=== PATIENT | male | born 1960 | race Caucasian/White ===

== ENCOUNTER 2025-04-06 09:07 | Inpatient (IN) | payer OTHER ==
[~2025-04-06] VITALS: Ht 185.4 cm; Wt 104.3 kg
[2025-04-06] MEDS ORDERED: TRIAMCINOLONE ACETONIDE SUSP 40 MG/ML 1 ML ONE (10:28)
[2025-04-06] MEDS ORDERED: HEMOSTATIC MATRIX 8 ML 1 EACH PAD MC ONE (10:29)
[2025-04-06] MEDS ORDERED: LIDOCAINE 0.5%-EPI 1:200,000 50 ML VIAL ONE (10:29)
[2025-04-06] MEDS ORDERED: MIDAZOLAM HCL 2 MG/2ML VIAL ONE (10:34)
[2025-04-06] MEDS ORDERED: LIDOCAINE 2% JEL UROJET 10 ML MM ONE (10:34)
[2025-04-06] MEDS ORDERED: Magnesium 1 GM/2 ML VIAL ONE (10:34)
[2025-04-06] MEDS ORDERED: FENTANYL PF 100MCG/2ML AMPUL ONE (10:34)
[2025-04-06] MEDS ORDERED: ROCURONIUM BROMIDE 50 MG/5 ML ONE ×2 (10:35→12:43)
[2025-04-06] MEDS ORDERED: ALBUMIN 5% 500 ML IV ONE (10:35)
[2025-04-06] MEDS ORDERED: FAMOTIDINE/PF INJ 20 MG/2 ML VIAL IV ONE (10:35)
[2025-04-06] MEDS ORDERED: SEVOFLURANE 250 ML BOTTLE IH ONE (10:43)
[2025-04-06] MEDS ORDERED: CEFAZOLIN 1 GM ONE (12:38)
[2025-04-06] MEDS ORDERED: SUGAMMADEX SODIUM 200 MG/2 ML VIAL IV ONE (13:05)
[2025-04-06] MEDS ORDERED: ACETAMINOPHEN 325 MG TABLET PO PRN (14:00)
[2025-04-06] MEDS ORDERED: MORPHINE SULFATE INJ 2 MG/ML DISP.SYRIN IV PRN (14:00)
[2025-04-06] MEDS ORDERED: hydrALAZINE HCL IV 20 MG VIAL IV PRN (14:00)
[2025-04-06] MEDS ORDERED: ONDANSETRON HCL/PF 4 MG/2 ML VIAL IVP PRN (14:00)
[2025-04-06] MEDS ORDERED: LISI10TA29 PO (15:38)
[2025-04-06] MEDS ORDERED: METF-440 PO (15:38)
[2025-04-06] MEDS ORDERED: HYDR25TA4 PO (15:38)
[2025-04-06] MEDS ORDERED: ATOR20TA PO (15:38)
[2025-04-06 16:00] VITALS: BP 124/62; TEMP 98.1; O2SAT 95
[2025-04-06 20:00] VITALS: BP 117/71; TEMP 98.4; O2SAT 95
[2025-04-07 07:00] VITALS: BP 114/77; TEMP 98.2; O2SAT 100
[2025-04-07 07:20] LABS: ASPARTATE AMINOTRANSFERASE 12.0 U/L (15-37); CALCIUM, SERUM 8.8 mg/dL (8.5-10.1); CREATININE 2.1 mg/dL (0.6-1.3); PHOSPHORUS 3.4 mg/dL (2.5-4.9); SODIUM SERUM 140.0 mmol/L (136-145); TOTAL PROTEIN, SERUM 6.8 g/dL (6.4-8.2); UREA NITROGEN, BLOOD 38.0 mg/dL (7-18)
[2025-04-07] MEDS: ANCEF 1 GM/50 ML D5W IV SCH (07:42)
[2025-04-07] MEDS: IV NS W/20MEQ KCL 1L IV SCH (07:42)
[2025-04-07] MEDS ORDERED: ZOLPIDEM TARTRATE 5 MG TABLET PO PRN (08:00)
[2025-04-07 08:02] LABS: PLATELET COUNT (AUTO) 238 K/uL (150-450); RED BLOOD CELL COUNT(AUTO) 4.45 MIL/uL (4.5-6.0); RED CELL DISTRIBUTION WIDTH 15.2 % (11.5-15.0); WHITE BLOOD COUNT (AUTO) 12.2 K/uL (4.3-11.0)
[2025-04-07] MEDS: HYDROMORPHONE 1 MG/1 ML DISP.SYRIN IV PRN (08:29)
[2025-04-07] MEDS: HYDROCHLOROTHIAZIDE 25 MG TABLET PO SCH (09:19)
[2025-04-07] MEDS: LISINOPRIL (10MG) 10 MG TABLET PO SCH (09:19)
[2025-04-07] MEDS: METFORMIN 500 MG TABLET PO SCH (09:19)
[2025-04-07] MEDS: ATORVASTATIN 10 MG TABLET PO SCH (09:19)
[2025-04-07] MEDS ORDERED: DEXTROSE 50%-WATER 50 ML DISP.SYRIN IV PRN (13:00)
[2025-04-07] MEDS: MAGNESIUM OXIDE 400 MG TABLET PO ONE (13:24)
[2025-04-07 16:00] VITALS: BP 118/83; TEMP 97.9; O2SAT 97
[2025-04-07] MEDS: BLOOD SUGAR DIAGNOSTIC 1 EACH STRIP IN SCH (16:56)
[2025-04-07] MEDS: INSULIN REGULAR, HUMAN 100 UNIT/ML 3 ML VIAL SQ PRN (17:02)
[2025-04-07 17:26] LABS: CREATININE, URINE 124.9 MG/DL (30.0-125.0); URINE SODIUM, RANDOM 67.0 mmol/l (40-220); URINE TOTAL PROTEIN 23.7 mg/dL (0-11.9)
[2025-04-07 17:38] LABS: APPEARANCE,URINE CLEAR (CLEAR); BLOOD, URINE NEGATIVE Ery/uL (NEGATIVE); LEUKOCYTE ESTERASE ,URINE NEGATIVE (NEGATIVE); NITRITE, URINE NEGATIVE (NEGATIVE); UGLUCOSE NEGATIVE (NEGATIVE)
[2025-04-07 19:12] LABS: EOSINOPHIL,URINE None Seen
[2025-04-07 20:00] VITALS: BP_SYST 114; BP_SYST 116; BP_DIAS 53; BP_DIAS 73; TEMP 97.5; TEMP 98.2; O2SAT 95; O2SAT 97
[2025-04-07] MEDS ORDERED: MAGNESIUM HYDROXIDE 30 ML UDC PO PRN (22:00)
[2025-04-07] MEDS: POLYETHYLENE GLYCOL 3350 17 GM POWD.PACK PO SCH (22:00)
[2025-04-07] MEDS: LACTULOSE 10 G/15 ML UDC (PYXIS) PR ONE (22:17)
[2025-04-08] VITALS: BP 103/61; TEMP 98.4; O2SAT 95
[2025-04-08 07:30] VITALS: BP 131/77; TEMP 98.2; O2SAT 99
[2025-04-08 11:19] LABS: PLATELET COUNT (AUTO) 227 K/uL (150-450); RED BLOOD CELL COUNT(AUTO) 4.45 MIL/uL (4.5-6.0); RED CELL DISTRIBUTION WIDTH 15.8 % (11.5-15.0); WHITE BLOOD COUNT (AUTO) 9.6 K/uL (4.3-11.0)
[2025-04-08 11:44] LABS: ASPARTATE AMINOTRANSFERASE 12.0 U/L (15-37); CALCIUM, SERUM 8.9 mg/dL (8.5-10.1); CREATININE 2.6 mg/dL (0.6-1.3); PHOSPHORUS 4.1 mg/dL (2.5-4.9); SODIUM SERUM 139.0 mmol/L (136-145); TOTAL PROTEIN, SERUM 6.9 g/dL (6.4-8.2); UREA NITROGEN, BLOOD 50.0 mg/dL (7-18)
[2025-04-08 12:08] LABS: CREATINE KINASE, TOTAL 121.0 U/L (39-308)
[2025-04-08 16:00] VITALS: BP 125/74; TEMP 98.1; O2SAT 98
[2025-04-08 17:09] LABS: CALCIUM, SERUM 9.6 mg/dL (8.5-10.1); CREATININE 2.6 mg/dL (0.6-1.3); SODIUM SERUM 140.0 mmol/L (136-145); UREA NITROGEN, BLOOD 53.0 mg/dL (7-18)
[2025-04-08 20:00] VITALS: BP 129/73; TEMP 98.6; O2SAT 96
[2025-04-09 05:08] LABS: PTH, INTACT 28 pg/mL (15-65)
[2025-04-09 07:11] LABS: ASPARTATE AMINOTRANSFERASE 12.0 U/L (15-37); CALCIUM, SERUM 8.8 mg/dL (8.5-10.1); CREATININE 2.5 mg/dL (0.6-1.3); SODIUM SERUM 141.0 mmol/L (136-145); TOTAL PROTEIN, SERUM 6.5 g/dL (6.4-8.2); UREA NITROGEN, BLOOD 53.0 mg/dL (7-18)
[2025-04-09 08:00] VITALS: BP 127/76; TEMP 98.1; O2SAT 97
[2025-04-09 08:04] LABS: PLATELET COUNT (AUTO) 223 K/uL (150-450); RED BLOOD CELL COUNT(AUTO) 4.37 MIL/uL (4.5-6.0); RED CELL DISTRIBUTION WIDTH 15.4 % (11.5-15.0); WHITE BLOOD COUNT (AUTO) 8.0 K/uL (4.3-11.0)
[2025-04-09] MEDS: METFORMIN 500 MG TABLET PO SCH (08:41)
[2025-04-09 16:00] VITALS: BP 128/74; TEMP 98.2; O2SAT 99
[2025-04-10 08:07] LABS: COMPLEMENT C3, SERUM 140 mg/dL (82-167); COMPLEMENT C4, SERUM 29 mg/dL (12-38)
[2025-04-10 10:07] LABS: HEPATITIS B SURFACE AB (QUAL) Reactive (.)
[2025-04-10 12:07] LABS: *ANA ANTI-CENTROMERE B AB <0.2 AI (0.0-0.9); *ANA ANTI-DNA(DS) AB, QN <1 IU/mL (0-9); *ANA ANTI-JO-1 <0.2 AI (0.0-0.9); *ANA ANTICHROMATIN ANTIBODY <0.2 AI (0.0-0.9); *ANA RNP ANTIBODIES 0.5 AI (0.0-0.9); *ANA SJOGREN'S ANTI-SS-A <0.2 AI (0.0-0.9); *ANA SJOGREN'S ANTI-SS-B <0.2 AI (0.0-0.9); *ANAANTI-SCLERODERMA-70 AB <0.2 AI (0.0-0.9); *ANASMITH AB <0.2 AI (0.0-0.9)
[2025-04-12 09:07] LABS: *SPE A/G RATIO 1.2 (0.7-1.7); *SPE ALBUMIN 3.4 g/dL (2.9-4.4); *SPE ALPHA-1-GLOBULIN 0.3 g/dL (0.0-0.4); *SPE ALPHA-2-GLOBULIN 0.7 g/dL (0.4-1.0); *SPE BETA GLOBULIN 0.9 g/dL (0.7-1.3); *SPE GLOBULIN, TOTAL 2.8 g/dL (2.2-3.9); *SPE M-SPIKE Not Observed g/dL (Not Observed); *SPE PROTEIN TOTAL 6.2 g/dL (6.0-8.5); *SPEGAMMA GLOBULIN 1.0 g/dL (0.4-1.8)
[2025-04-13 20:07] LABS: *ANCA ATYPICAL p-ANCA <1:20 titer (Neg:<1:20); *ANCA CYTOPLASMIC (C-ANCA) <1:20 titer (Neg:<1:20); *ANCA PERINUCLEAR (P-ANCA) <1:20 titer (Neg:<1:20)
== END 2025-04-09 18:30 | disposition home or self-care (01) | DRG 519 ==
LOC: DS 09:07 → MED 09:15
PROVIDERS: ADMIT Internal Medicine; ATTEND Internal Medicine
PROC: 0SB20ZZ Excision of Lumbar Vertebral Disc, Open Approach (ICD-10-PCS; 2025-04-06)
PROC: 00NY0ZZ Release Lumbar Spinal Cord, Open Approach (ICD-10-PCS; 2025-04-06)
PROC: 01NB0ZZ Release Lumbar Nerve, Open Approach (ICD-10-PCS; principal; 2025-04-06 11:00)
DX: M51.16 Intervertebral disc disorders with radiculopathy, lumbar region (principal); M51.06 Intervertebral disc disorders with myelopathy, lumbar region; N17.9 Acute kidney failure, unspecified; M48.061 Spinal stenosis, lumbar region without neurogenic claudication; E11.41 Type 2 diabetes mellitus with diabetic mononeuropathy; E78.5 Hyperlipidemia, unspecified; G89.29 Other chronic pain; N18.9 Chronic kidney disease, unspecified; E66.9 Obesity, unspecified; Z68.30 Body mass index [BMI] 30.0-30.9, adult; I12.9 Hypertensive chronic kidney disease with stage 1 through stage 4 chronic kidney disease, or unspecified chronic kidney disease; E11.65 Type 2 diabetes mellitus with hyperglycemia; E11.22 Type 2 diabetes mellitus with diabetic chronic kidney disease; Z91.199 Patient's noncompliance with other medical treatment and regimen due to unspecified reason
CPT/HCPCS: 36415; 72100-TC; 76770-TC; 80048-TC; 80053-TC; 82550-TC; 82570-TC; 82962-TC; 83520; 83735-TC; 83970; 84100-TC; 84155; 84165; 84300-TC; 85025-TC; 85652-TC; 86225; 86235; 86256; 86706; 86803; 87340; 97112-TC; 97116-TC; 97530-TC; A4223; G0378; J0330; J0690; J1100; J1171; J1308; J1815; J1885; J2250; J2405; J2704; J3010; J3475; J3480; J3490; J7030; J7040; J7060; P9045

== ENCOUNTER 2025-04-21 21:29 | Inpatient (IN) | payer MEDICAID, OTHER ==
[~2025-04-21] VITALS: Ht 182.9 cm; Wt 96.6 kg
[~2025-04-21 21:29] MED LIST: ATOR20TA PO; HYDR25TA4 PO; LISI10TA29 PO; METF-440 PO
[2025-04-22] VITALS: BP 122/81; TEMP 98
[2025-04-22] MEDS ORDERED: Z GUARD REMEDY 4 OZ OINT TP PRN
[2025-04-22] MEDS ORDERED: TEMAZEPAM 15 MG CAPSULE PO PRN
[2025-04-22] MEDS: IV D5W 1,000 ML IV SCH (00:55)
[2025-04-22] MEDS: HYDROCODONE/APAP 5/325MG TABLET PO PRN (01:12)
[2025-04-22 04:00] VITALS: BP 119/80; TEMP 98; O2SAT 98
[2025-04-22] MEDS: IV NS 0.9% 1,000 ML IV SCH (06:50)
[2025-04-22 07:29] LABS: PLATELET COUNT (AUTO) 259 K/uL (150-450); RED BLOOD CELL COUNT(AUTO) 4.93 MIL/uL (4.5-6.0); RED CELL DISTRIBUTION WIDTH 14.6 % (11.5-15.0); WHITE BLOOD COUNT (AUTO) 9.1 K/uL (4.3-11.0)
[2025-04-22 07:53] LABS: INR 1.01 (0.91-1.10)
[2025-04-22 08:10] VITALS: BP 122/85; TEMP 97.9; O2SAT 99
[2025-04-22 08:16] LABS: LDL 54.0 mg/dL (0-99)
[2025-04-22 08:21] LABS: CALCIUM, SERUM 9.7 mg/dL (8.5-10.1); CREATININE 2.1 mg/dL (0.6-1.3); PHOSPHORUS 3.4 mg/dL (2.5-4.9); SODIUM SERUM 140.0 mmol/L (136-145); UREA NITROGEN, BLOOD 31.0 mg/dL (7-18)
[2025-04-22] MEDS: PANTOPRAZOLE 40 MG TABLET.DR PO SCH (08:30)
[2025-04-22] MEDS: ATORVASTATIN 10 MG TABLET PO SCH (08:36)
[2025-04-22] MEDS: DOCUSATE SODIUM 100 MG CAPSULE PO SCH (08:36)
[2025-04-22] MEDS: LISINOPRIL (10MG) 10 MG TABLET PO SCH (08:36)
[2025-04-22] MEDS: NICOTINE PATCH (7MG) 7 MG PATCH.TD24 TD SCH (08:36)
[2025-04-22] MEDS: HYDROCHLOROTHIAZIDE 25 MG TABLET PO SCH (08:37)
[2025-04-22] MEDS: METFORMIN 500 MG TABLET PO SCH (09:02)
[2025-04-22] MEDS ORDERED: BACL10TA PO (10:02)
[2025-04-22] MEDS: dexaMETHasone SOD PHOSPHATE 4 MG/ML VIAL IV SCH (12:00)
[2025-04-22 12:10] VITALS: BP 118/77; TEMP 98.1; O2SAT 98
[2025-04-22 16:10] VITALS: BP 117/82; TEMP 98.1; O2SAT 100
[2025-04-22 20:00] VITALS: BP_SYST 124; BP_SYST 125; BP_DIAS 74; BP_DIAS 78; TEMP 98.1; O2SAT 97; O2SAT 98
[2025-04-23] VITALS (7 sets, daily range): BP systolic 119–136; BP diastolic 72–80; TEMP 97.5–98.1; O2SAT 96–100
[2025-04-23 08:16] LABS: PLATELET COUNT (AUTO) 297 K/uL (150-450); RED BLOOD CELL COUNT(AUTO) 5.32 MIL/uL (4.5-6.0); RED CELL DISTRIBUTION WIDTH 14.4 % (11.5-15.0); WHITE BLOOD COUNT (AUTO) 8.9 K/uL (4.3-11.0)
[2025-04-23 08:43] LABS: ASPARTATE AMINOTRANSFERASE < 5 U/L (15-37); CALCIUM, SERUM 9.4 mg/dL (8.5-10.1); CREATININE 1.8 mg/dL (0.6-1.3); PHOSPHORUS 4.5 mg/dL (2.5-4.9); SODIUM SERUM 141 mmol/L (136-145); TOTAL PROTEIN, SERUM 7.6 g/dL (6.4-8.2); UREA NITROGEN, BLOOD 34 mg/dL (7-18)
[2025-04-23 08:49] LABS: CREATINE KINASE, TOTAL 23 U/L (39-308)
[2025-04-23] MEDS ORDERED: DEXTROSE 50%-WATER 50 ML DISP.SYRIN IV PRN (20:30)
[2025-04-23] MEDS: BLOOD SUGAR DIAGNOSTIC 1 EACH STRIP IN SCH (21:48)
[2025-04-23] MEDS: INSULIN REGULAR, HUMAN 100 UNIT/ML 3 ML VIAL SQ PRN (21:49)
[2025-04-24] VITALS (7 sets, daily range): BP systolic 115–130; BP diastolic 73–85; TEMP 97.5–98.5; O2SAT 99–100
[2025-04-24 08:39] LABS: PLATELET COUNT (AUTO) 301 K/uL (150-450); RED BLOOD CELL COUNT(AUTO) 4.88 MIL/uL (4.5-6.0); RED CELL DISTRIBUTION WIDTH 14.5 % (11.5-15.0); WHITE BLOOD COUNT (AUTO) 12.4 K/uL (4.3-11.0)
[2025-04-24 08:46] LABS: ASPARTATE AMINOTRANSFERASE 6.0 U/L (15-37); CALCIUM, SERUM 9.2 mg/dL (8.5-10.1); CREATININE 1.9 mg/dL (0.6-1.3); PHOSPHORUS 4.1 mg/dL (2.5-4.9); SODIUM SERUM 138.0 mmol/L (136-145); TOTAL PROTEIN, SERUM 6.9 g/dL (6.4-8.2); UREA NITROGEN, BLOOD 39.0 mg/dL (7-18)
[2025-04-24] MEDS: ACETAMINOPHEN 325 MG TABLET PO PRN (09:23)
[2025-04-24] MEDS ORDERED: IOHEXOL 240MG/ML 50 ML IV ONE (09:36)
[2025-04-24] MEDS ORDERED: IOHEXOL-350 100 ML VIAL IV ONE (09:36)
[2025-04-25 00:01] VITALS: BP 140/80; TEMP 97.9; O2SAT 98
[2025-04-25 04:00] VITALS: BP 123/86; TEMP 97.7; O2SAT 96
[2025-04-25 08:00] VITALS: BP 124/85; TEMP 97.3; O2SAT 99
[2025-04-25 08:01] LABS: ASPARTATE AMINOTRANSFERASE 8.0 U/L (15-37); CALCIUM, SERUM 9.2 mg/dL (8.5-10.1); CREATININE 1.7 mg/dL (0.6-1.3); SODIUM SERUM 139.0 mmol/L (136-145); TOTAL PROTEIN, SERUM 6.8 g/dL (6.4-8.2); UREA NITROGEN, BLOOD 39.0 mg/dL (7-18)
[2025-04-25 12:00] VITALS: BP 121/76; TEMP 98.2; O2SAT 97
[2025-04-25 16:00] VITALS: BP 123/74; TEMP 97.7; O2SAT 98
[2025-04-25 20:00] VITALS: BP 155/72; TEMP 97.7; O2SAT 98
[2025-04-26] VITALS: BP 151/74; TEMP 97.9; O2SAT 98
[2025-04-26 04:00] VITALS: BP 137/82; TEMP 97.7; O2SAT 97
[2025-04-26 06:30] LABS: PLATELET COUNT (AUTO) 268 K/uL (150-450); RED BLOOD CELL COUNT(AUTO) 4.63 MIL/uL (4.5-6.0); RED CELL DISTRIBUTION WIDTH 14.7 % (11.5-15.0); WHITE BLOOD COUNT (AUTO) 10.3 K/uL (4.3-11.0)
[2025-04-26 07:50] LABS: ASPARTATE AMINOTRANSFERASE 5.0 U/L (15-37); CALCIUM, SERUM 8.7 mg/dL (8.5-10.1); CREATININE 1.5 mg/dL (0.6-1.3); PHOSPHORUS 3.3 mg/dL (2.5-4.9); SODIUM SERUM 139.0 mmol/L (136-145); TOTAL PROTEIN, SERUM 6.3 g/dL (6.4-8.2); UREA NITROGEN, BLOOD 37.0 mg/dL (7-18)
[2025-04-26 08:05] VITALS: BP 126/80; TEMP 97.3; O2SAT 97
[2025-04-26 12:05] VITALS: BP 150/79; TEMP 97.9; O2SAT 98
[2025-04-26] MEDS: ONDANSETRON HCL/PF 4 MG/2 ML VIAL IVP PRN (12:18)
[2025-04-26 16:05] VITALS: BP 134/82; TEMP 97.9; O2SAT 99
[2025-04-26 20:00] VITALS: BP 148/72; TEMP 97.7; O2SAT 99
[2025-04-27] VITALS (10 sets, daily range): BP systolic 130–156; BP diastolic 70–85; TEMP 97.7–98.4; O2SAT 96–100
[2025-04-27 01:37] LABS: PLATELET COUNT (AUTO) 258 K/uL (150-450); RED BLOOD CELL COUNT(AUTO) 4.92 MIL/uL (4.5-6.0); RED CELL DISTRIBUTION WIDTH 14.4 % (11.5-15.0); WHITE BLOOD COUNT (AUTO) 9.7 K/uL (4.3-11.0)
[2025-04-27 01:42] LABS: CALCIUM, SERUM 8.9 mg/dL (8.5-10.1); CREATININE 1.7 mg/dL (0.6-1.3); SODIUM SERUM 139.0 mmol/L (136-145); UREA NITROGEN, BLOOD 36.0 mg/dL (7-18)
[2025-04-27 01:49] LABS: APPEARANCE,URINE CLEAR (CLEAR); BLOOD, URINE NEGATIVE Ery/uL (NEGATIVE); LEUKOCYTE ESTERASE ,URINE NEGATIVE (NEGATIVE); NITRITE, URINE NEGATIVE (NEGATIVE); UGLUCOSE 1+ mg/dL (NEGATIVE)
[2025-04-27 01:51] LABS: INR 1.08 (0.91-1.10)
[2025-04-27 02:39] LABS: ADD URINE CULTURE NO; SQUAMOUS EPITHELIAL CELL,UR Few /HPF (None Seen)
[2025-04-27] MEDS ORDERED: ANESTHESIA TRAY IN PYXIS 1 EA TRAY MC ONE (06:55)
[2025-04-27] MEDS ORDERED: LIDOCAINE 0.5%-EPI 1:200,000 50 ML VIAL ONE (06:57)
[2025-04-27] MEDS ORDERED: HEMOSTATIC MATRIX 8 ML 1 EACH PAD MC ONE ×2 (06:57→09:29)
[2025-04-27] MEDS ORDERED: TRIAMCINOLONE ACETONIDE SUSP 40 MG/ML 1 ML ONE (06:57)
[2025-04-27] MEDS ORDERED: VANCOMYCIN 1 GM VIAL ONE (06:59)
[2025-04-27] MEDS ORDERED: BUPIVACAINE 0.5 % PF 150 MG/30 ML VIAL ONE (06:59)
[2025-04-27] MEDS ORDERED: Magnesium 1 GM/2 ML VIAL ONE (07:29)
[2025-04-27] MEDS ORDERED: HYDROMORPHONE INJ 2 MG/ML DISP.SYRIN ONE (07:29)
[2025-04-27] MEDS ORDERED: MIDAZOLAM HCL 2 MG/2ML VIAL ONE (07:29)
[2025-04-27] MEDS ORDERED: FAMOTIDINE/PF INJ 20 MG/2 ML VIAL IV ONE (07:29)
[2025-04-27] MEDS ORDERED: LIDOCAINE 2% JEL UROJET 10 ML MM ONE (07:30)
[2025-04-27] MEDS ORDERED: ROCURONIUM BROMIDE 50 MG/5 ML ONE (07:30)
[2025-04-27] MEDS ORDERED: POLYMYXIN B SULFATE 500,000 UNITS ONE (08:42)
[2025-04-27] MEDS ORDERED: SUGAMMADEX SODIUM 200 MG/2 ML VIAL IV ONE (09:18)
[2025-04-27] MEDS ORDERED: SENNOSIDES 8.6 MG TABLET PO PRN (12:00)
[2025-04-27] MEDS ORDERED: BISACODYL SUPP (10 MG) 10 MG/SUPP.RECT SUPP.RECT RC PRN (12:00)
[2025-04-27] MEDS ORDERED: DOCUSATE SODIUM 250 MG CAPSULE PO PRN (12:00)
[2025-04-27] MEDS ORDERED: HYDROMORPHONE 1 MG/1 ML DISP.SYRIN IV PRN (12:00)
[2025-04-27] MEDS ORDERED: HYDROCODONE/APAP 5/325MG TABLET PO PRN (12:00)
[2025-04-27] MEDS: IV NS W/20MEQ KCL 1L IV SCH (12:32)
[2025-04-27] MEDS: ANCEF 1 GM/50 ML D5W IV SCH (15:03)
[2025-04-28] VITALS: BP 141/84; TEMP 98.1; O2SAT 99
[2025-04-28 04:00] VITALS: BP 132/89; TEMP 97.7; O2SAT 96
[2025-04-28 07:12] LABS: PLATELET COUNT (AUTO) 228 K/uL (150-450); RED BLOOD CELL COUNT(AUTO) 4.60 MIL/uL (4.5-6.0); RED CELL DISTRIBUTION WIDTH 14.4 % (11.5-15.0); WHITE BLOOD COUNT (AUTO) 10.8 K/uL (4.3-11.0)
[2025-04-28 07:48] LABS: CALCIUM, SERUM 9.0 mg/dL (8.5-10.1); CREATININE 1.6 mg/dL (0.6-1.3); PHOSPHORUS 3.2 mg/dL (2.5-4.9); SODIUM SERUM 139.0 mmol/L (136-145); UREA NITROGEN, BLOOD 28.0 mg/dL (7-18)
[2025-04-28 08:00] VITALS: BP 138/86; TEMP 97.5; O2SAT 97
[2025-04-28] MEDS: HEPARIN SODIUM, PORCINE 5000 UNITS/1 ML VIAL SQ SCH (08:14)
[2025-04-28] MEDS: MAGNESIUM OXIDE 400 MG TABLET PO ONE (11:43)
[2025-04-28 12:00] VITALS: O2SAT 97
[2025-04-28 16:00] VITALS: BP 126/83; TEMP 97.5; O2SAT 96
[2025-04-28 20:00] VITALS: BP 126/75; TEMP 97.5; O2SAT 98
[2025-04-29 04:00] VITALS: BP 140/77; TEMP 97.7; O2SAT 97
[2025-04-29 07:25] LABS: PLATELET COUNT (AUTO) 210 K/uL (150-450); RED BLOOD CELL COUNT(AUTO) 4.39 MIL/uL (4.5-6.0); RED CELL DISTRIBUTION WIDTH 14.6 % (11.5-15.0); WHITE BLOOD COUNT (AUTO) 9.8 K/uL (4.3-11.0)
[2025-04-29 08:00] VITALS: BP 155/86; TEMP 98; O2SAT 99
[2025-04-29 08:20] LABS: ASPARTATE AMINOTRANSFERASE 8.0 U/L (15-37); CALCIUM, SERUM 8.5 mg/dL (8.5-10.1); CREATININE 1.3 mg/dL (0.6-1.3); PHOSPHORUS 2.7 mg/dL (2.5-4.9); SODIUM SERUM 138.0 mmol/L (136-145); TOTAL PROTEIN, SERUM 5.9 g/dL (6.4-8.2); UREA NITROGEN, BLOOD 30.0 mg/dL (7-18)
[2025-04-29 12:00] VITALS: BP 155/86; TEMP 98; O2SAT 99
[2025-04-29] MEDS: BLOOD SUGAR DIAGNOSTIC 1 EACH STRIP IN SCH (12:05)
[2025-04-29] MEDS: CYCLOBENZAPRINE 10 MG TABLET PO PRN (12:38)
[2025-04-29] MEDS: MAGNESIUM HYDROXIDE 30 ML UDC PO PRN (12:38)
[2025-04-29 16:00] VITALS: BP 137/85; TEMP 97.9; O2SAT 100
[2025-04-29 20:35] VITALS: BP 143/76; TEMP 97.9; O2SAT 98
[2025-04-30 04:00] VITALS: BP 132/81; TEMP 97.9; O2SAT 98
[2025-04-30 08:00] VITALS: BP 133/87; TEMP 98; O2SAT 98
[2025-04-30 08:21] LABS: PLATELET COUNT (AUTO) 239 K/uL (150-450); RED BLOOD CELL COUNT(AUTO) 4.95 MIL/uL (4.5-6.0); RED CELL DISTRIBUTION WIDTH 14.6 % (11.5-15.0); WHITE BLOOD COUNT (AUTO) 13.7 K/uL (4.3-11.0)
[2025-04-30 08:43] LABS: CALCIUM, SERUM 9.1 mg/dL (8.5-10.1); CREATININE 1.6 mg/dL (0.6-1.3); PHOSPHORUS 3.1 mg/dL (2.5-4.9); SODIUM SERUM 139.0 mmol/L (136-145); UREA NITROGEN, BLOOD 34.0 mg/dL (7-18)
[2025-04-30] MEDS ORDERED: CYCL10TA9 PO (12:27)
[2025-04-30 16:00] VITALS: BP 114/79; TEMP 97.9; O2SAT 99
== END 2025-04-30 19:03 | disposition home health service (06) | DRG 28 ==
LOC: TELE-TD 21:29 → TELE1 04-22 00:17 → MEDSG1 04-28 09:31
PROVIDERS: ADMIT Registered Nurse Psychiatric/Mental Health; ATTEND Internal Medicine
PROC: 00NY0ZZ Release Lumbar Spinal Cord, Open Approach (ICD-10-PCS; principal; 2025-04-28)
PROC: 0SB20ZZ Excision of Lumbar Vertebral Disc, Open Approach (ICD-10-PCS; 2025-04-28)
DX: G96.09 Other spinal cerebrospinal fluid leak (principal); N17.0 Acute kidney failure with tubular necrosis; N18.4 Chronic kidney disease, stage 4 (severe); E11.22 Type 2 diabetes mellitus with diabetic chronic kidney disease; I12.9 Hypertensive chronic kidney disease with stage 1 through stage 4 chronic kidney disease, or unspecified chronic kidney disease; E78.5 Hyperlipidemia, unspecified; D64.9 Anemia, unspecified; G89.29 Other chronic pain; R51.9 Headache, unspecified; E83.9 Disorder of mineral metabolism, unspecified; Y83.8 Other surgical procedures as the cause of abnormal reaction of the patient, or of later complication, without mention of misadventure at the time of the procedure; Y81.8 Miscellaneous general- and plastic-surgery devices associated with adverse incidents, not elsewhere classified; Y92.89 Other specified places as the place of occurrence of the external cause; Z79.84 Long term (current) use of oral hypoglycemic drugs; Z86.69 Personal history of other diseases of the nervous system and sense organs; Z87.891 Personal history of nicotine dependence
CPT/HCPCS: 36415; 70496-TC; 70498-TC; 71045-TC; 72100-TC; 72148-TC; 80048-TC; 80053-TC; 80061-TC; 81001; 82550-TC; 82962-TC; 83735-TC; 83970; 84100-TC; 85025-TC; 85610-TC; 85730-TC; 86850-TC; 87081-TC; 97110-TC; 97116-TC; 97164; 97530-TC; 97535-TC; A4223; A6254; G0378; J0690; J1100; J1171; J1308; J1644; J1815; J2250; J2405; J2704; J3373; J3475; J3480; J3490; J7030; J7050; J7060; J7070; Q9966; Q9967